=== PATIENT | male | born 1990 | race Caucasian/White ===

== ENCOUNTER 2023-11-03 17:41 | Emergency (ER) | payer OTHER ==
[~2023-11-03] VITALS: Ht 154.9 cm; Wt 54.9 kg
[2023-11-03] MEDS: FAMOTIDINE/PF INJ 20 MG/2 ML VIAL IV ONE (18:11)
[2023-11-03] MEDS: ONDANSETRON HCL/PF 4 MG/2 ML VIAL IVP ONE (18:12)
[2023-11-03] MEDS: IV NS 0.9% 1,000 ML BAG IV ONE (18:12)
[2023-11-03] MEDS ORDERED: FAMOTIDINE/PF INJ 20 MG/2 ML VIAL IV ONE (18:15)
[2023-11-03] MEDS ORDERED: ONDANSETRON HCL/PF 4 MG/2 ML VIAL ONE (18:15)
[2023-11-03 18:49] LABS: BASOPHILS # (AUTO) 0.1 K/uL (0.0-0.2); BASOPHILS % (AUTO) 0.6 % (0.0-2.0); EOSINOPHILS # (AUTO) 0.1 K/uL (0.0-0.7); EOSINOPHILS % (AUTO) 1.5 % (0.0-6.0); HEMATOCRIT 41 % (39-51); HEMOGLOBIN 13.9 g/dL (13.5-17.5); LYMPHOCYTES # (AUTO) 1.8 K/uL (0.8-4.8); LYMPHOCYTES % (AUTO) 21.1 % (20.0-44.0); MEAN CORPUSCULAR HEMOGLOBIN 31 PG (26.0-33.0); MEAN CORPUSCULAR HGB CONC 34 g/dl (31.0-36.0); MEAN CORPUSCULAR VOLUME 90 fL (80-96); MONOCYTES # (AUTO) 0.6 K/uL (0.1-1.30); MONOCYTES % (AUTO) 7.2 % (2.0-12.0); NEUTROPHILS % (AUTO) 69.6 % (43.0-81.0); PLATELET COUNT (AUTO) 272 K/uL (150-450); RED BLOOD CELL COUNT(AUTO) 4.55 MIL/uL (4.5-6.0); RED CELL DISTRIBUTION WIDTH 12.7 % (11.5-15.0); WHITE BLOOD COUNT (AUTO) 8.7 K/uL (4.3-11.0)
[2023-11-03 18:55] LABS: CALCIUM, SERUM 9.1 mg/dL (8.5-10.1); POTASSIUM 4.1 mmol/L (3.5-5.1)
[2023-11-03 19:01] LABS: ALBUMIN 3.6 g/dL (3.4-5.0); BILIRUBIN,DIRECT 0.1 mg/dL (0.0-0.2); BILIRUBIN,TOTAL 0.4 mg/dL (0.2-1.0); TOTAL PROTEIN, SERUM 7.9 g/dL (6.4-8.2)
[2023-11-03] MEDS ORDERED: ONDA4TAB5 PO (19:12)
[2023-11-03 19:46] VITALS: BP 130/75; TEMP 98.7; O2SAT 100
== END 2023-11-03 19:46 | disposition home or self-care (01) ==
LOC: ER 17:55
DX: R11.2 Nausea with vomiting, unspecified (principal); R19.7 Diarrhea, unspecified; Z60.2 Problems related to living alone
CPT/HCPCS: 99284; 96374; 96375; 85025; 80048; 83690; 80076; 36415; J3490; J2405; J7030

== ENCOUNTER 2024-12-26 11:54 | Emergency (ER) | payer OTHER ==
[~2024-12-26] VITALS: Ht 180.3 cm; Wt 93.9 kg
[~2024-12-26 11:54] MED LIST: ONDA4TAB5 PO
[2024-12-26 14:20] VITALS: BP 142/91; TEMP 98.3; O2SAT 99
== END 2024-12-26 14:20 | disposition home or self-care (01) ==
LOC: ER 12:05
DX: S40.011A Contusion of right shoulder, initial encounter (principal); W19.XXXA Unspecified fall, initial encounter; Y93.55 Activity, bike riding; Y92.89 Other specified places as the place of occurrence of the external cause; Y99.8 Other external cause status
CPT/HCPCS: 73030-TC